=== PATIENT | female | born 1975 | race Caucasian/White ===

== ENCOUNTER 2017-04-29 08:58 | Emergency (ER) | payer BC ==
[2017-04-29 09:38] LABS: BASOPHILS 0.1 % (0-2); EOSINOPHILS 1.4 % (0-7); HEMATOCRIT 38.6 % (36.0-48.0); HEMOGLOBIN 12.2 g/dL (12-16); IMMATURE GRANULOCYTES 0.2 % (0-5); LYMPHOCYTES 18.1 % (15-50); MCH 25.7 pg (26.0-34.0); MCHC 31.6 g/dL (31.0-37.0); MCV 81.3 fL (80.0-100.0); MEAN PLATELET VOLUME 10.4 fL (7.4-10.4); MONOCYTES 7.4 % (2-11); NEUTROPHILS 72.8 % (40-80); PLATELET COUNT 220 10x3/uL (130-400); RBC 4.75 10x6/uL (4.00-5.40); RDW 16.4 % (11.5-14.5); WBC 9.6 10x3/uL (4.8-10.8)
[2017-04-29 09:57] LABS: ALBUMIN 3.8 g/dL (3.4-5.0); ALKALINE PHOSPHATASE 66 U/L (46-116); ALT (SGPT) 29 U/L (10-68); BILIRUBIN - TOTAL 0.88 mg/dL (0.2-1.3); CALC OSMOLALITY 276 mosm/kg (275-300); CALCIUM 8.8 mg/dL (8.5-10.1); CARBON DIOXIDE 26.4 mmol/L (21.0-32.0); CHLORIDE - SERUM 103 mmol/L (98-107); CREATININE - SERUM 0.9 mg/dL (0.6-1.3); GLUCOSE 100 mg/dL (74-106); POTASSIUM - SERUM 3.8 mmol/L (3.5-5.1); PROTEIN - SERUM 7.5 g/dL (6.4-8.2); SODIUM 138 mmol/L (136-145); UREA NITROGEN 14 mg/dL (7-18); eGFR NON AFRICAN AMERICAN 73 mL/min (90-120)
[2017-04-29 10:08] LABS: CHOL - HDL RATIO 2.2 ratio (2.3-4.1); CHOLESTEROL, TOTAL 156 mg/dL (0-200); CKMB 0.5 U/L (0.0-3.6); CREATINE KINASE 105 UL (21-215); HDL CHOLESTEROL 72 mg/dL (32-96); LDL CHOLESTEROL 67 mg/dL (0-100); LDL-HDL RATIO 0.9 ratio (1.5-3.5); TRIGLYCERIDE 88 mg/dL (30-200)
[2017-04-29 10:11] LABS: TROPONIN-I < 0.017 ng/mL (0.000-0.060)
== END 2017-04-29 11:03 | disposition home or self-care (01) ==
LOC: D.ER 08:58
PROVIDERS: Emergency Medicine
DX: R07.9 Chest pain, unspecified (principal)